=== PATIENT | male | born 1955 | race African-American/Black ===

== ENCOUNTER 2019-12-06 12:10 | Inpatient (IN) | payer MEDICARE, MEDICAID ==
[~2019-12-06] VITALS: Ht 167.6 cm; Wt 62.6 kg
[~2019-12-06 12:10] MED LIST: ASPI-1497 MT; ATOR20TA MT; HYDR25TA MT; INSU100I24 SQ; LISI40TA4 MT; METF-416 MT; NICO-645 TP; OMEP20CA14 MT
[2019-12-06] MEDS ORDERED: SODIUM CHLORIDE 0.9% 1,000 ML IV ONE (14:34)
[2019-12-06] MEDS ORDERED: ONDANSETRON HCL 4MG/2ML INJ IV STA (14:34)
[2019-12-06] MEDS ORDERED: MORPHINE SULFATE 4 MG/ML CPJ (NOT FOR IM USE) IV STA (14:34)
[2019-12-06] MEDS ORDERED: ONDANSETRON HCL 4MG/2ML INJ IM ONE (14:45)
[2019-12-06] MEDS ORDERED: LIDOCAINE HCL 1% 20ML VIAL (Pyxis) INJ ONE (15:03)
[2019-12-06] MEDS ORDERED: SODIUM BICARBONATE 4% (2.4MEQ) 5ML VIAL IV ONE (15:03)
[2019-12-06 16:43] LABS: BASOPHILS % 0.2 % (0.0-2.0); HEMATOCRIT. 42.5 % (42.0-52.0); LYMPHOCYTES % 15.8 % (20.0-50.0); MEAN CORPUSCULAR HEMOGLOBIN 30.2 pg (28.0-32.0); MEAN CORPUSCULAR VOLUME 91.9 fL (80.0-94.0); MEAN PLATELET VOLUME 8.4 fl (7.4-10.4); MONOCYTES % 4.7 % (2.0-8.0); NEUTROPHILS % 79.3 % (40.0-76.0); PLATELET 363 x1000/uL (130-400); RED BLOOD CELL COUNT 4.63 mill/uL (4.7-6.1); RED CELL DISTRIBUTION WIDTH 14.9 % (11.6-14.6)
[2019-12-06 16:48] LABS: CHLORIDE 106 mEq/L (98-107); INR 1.1
[2019-12-06 16:52] LABS: ETHANOL BLOOD < 10 mg/dL
[2019-12-06 18:17] LABS: CLARITY URINE CLEAR (CLEAR); COLOR URINE YELLOW (YELLOW); KETONES URINE NEGATIVE (NEGATIVE); LEUKOCYTE ESTERASE URINE NEGATIVE (NEGATIVE); NITRITE URINE NEGATIVE (NEGATIVE); OCCULT BLOOD URINE NEGATIVE (NEGATIVE); PROTEIN URINE 1+ (NEGATIVE); SPECIFIC GRAVITY URINE 1.023 (1.005-1.030); UROBILINOGEN URINE 0.2 E.U./dL (0.2-1.0)
[2019-12-06 18:37] LABS: *AMPHETAMINES SCREEN URINE NEGATIVE (NEGATIVE); *BARBITURATES SCREEN URINE NEGATIVE (NEGATIVE)
[2019-12-06 18:38] LABS: *BENZODIAZEPINES SCREEN URINE NEGATIVE (NEGATIVE); *COCAINE SCREEN URINE PRESUMTIVE POSITIVE (NEGATIVE); CANNABINOID URINE SCREEN PRESUMTIVE POSITIVE (NEGATIVE); METHADONE URINE SCREEN NEGATIVE (NEGATIVE); OPIATES URINE SCREEN PRESUMTIVE POSITIVE (NEGATIVE); PHENCYCLIDINE URINE SCREEN NEGATIVE (NEGATIVE)
[2019-12-06] MEDS ORDERED: ONDANSETRON HCL 4MG/2ML INJ IV ONE (18:45)
[2019-12-06] MEDS ORDERED: MORPHINE SULFATE 4 MG/ML CPJ (NOT FOR IM USE) IV ONE (18:45)
[2019-12-06] MEDS ORDERED: IPRATROPIUM/ALBUTEROL 0.5-3(2.5)MG/3ML NEB HHN PRN (20:30)
[2019-12-06] MEDS ORDERED: CLONIDINE 0.1MG TABLET PO PRN (20:30)
[2019-12-06] MEDS ORDERED: DOCUSATE SODIUM 100MG CAPSULE PO PRN (20:30)
[2019-12-06] MEDS ORDERED: DIPHENHYDRAMINE 50MG/ML VIAL IV PRN (20:30)
[2019-12-06] MEDS ORDERED: ACETAMINOPHEN 650MG SUPP PR PRN (20:30)
[2019-12-06] MEDS ORDERED: ACETAMINOPHEN 650MG/20.3ML UDC GT PRN (20:30)
[2019-12-06] MEDS ORDERED: ACETAMINOPHEN 325MG TABLET PO PRN (20:30)
[2019-12-06] MEDS ORDERED: GUAIFENESIN 200MG/10ML SUGAR FREE UDC PO PRN (20:30)
[2019-12-06] MEDS ORDERED: NA PHOS,M-B/NA PHOS,DI-BA ENEMA 118ML PR PRN (20:30)
[2019-12-06] MEDS ORDERED: MAGNESIUM/ALUMINUM HYDROXIDE/SIMETHICONE 30ML UDC PO PRN (20:30)
[2019-12-06 21:00] VITALS: BP 132/77
[2019-12-06 21:20] VITALS: BP 132/77
[2019-12-06] MEDS ORDERED: DEXTROSE 50% WATER 50ML SYRINGE IV PRN (22:30)
[2019-12-06] MEDS ORDERED: IOHEXOL-300 100 ML BOTTLE ONE (22:59)
[2019-12-06] MEDS: SODIUM CHLORIDE 0.9% INJ 3ML FLUSH IVF SCH (23:17)
[2019-12-06] MEDS: SODIUM CHLORIDE 0.45% 1,000 ML IV SCH (23:17)
[2019-12-07] VITALS: BP 131/70
[2019-12-07] MEDS: ONDANSETRON HCL 4MG/2ML INJ IV PRN ×2 (00:08→08:25)
[2019-12-07 04:00] VITALS: BP 104/73
[2019-12-07] MEDS: SODIUM CHLORIDE 0.9% INJ 3ML FLUSH IVF SCH (05:15)
[2019-12-07] MEDS: METOCLOPRAMIDE HCL 10MG/2ML VIAL IV SCH ×2 (05:54→11:20)
[2019-12-07] MEDS: BLOOD SUGAR DIAGNOSTIC STRIP TEST SCH ×2 (06:33→11:20)
[2019-12-07 07:24] LABS: BASOPHILS % 0.5 % (0.0-2.0); EOSINOPHILS % 1.2 % (0.0-5.0); HEMATOCRIT. 39.1 % (42.0-52.0); HEMOGLOBIN. 13.3 g/dL (14.0-18.0); LYMPHOCYTES % 33.3 % (20.0-50.0); MEAN CORPUSCULAR HEMOGLOBIN 30.8 pg (28.0-32.0); MEAN CORPUSCULAR VOLUME 90.8 fL (80.0-94.0); MEAN PLATELET VOLUME 8.2 fl (7.4-10.4); MONOCYTES % 7.5 % (2.0-8.0); NEUTROPHILS % 57.5 % (40.0-76.0); PLATELET 307 x1000/uL (130-400); RED BLOOD CELL COUNT 4.31 mill/uL (4.7-6.1); RED CELL DISTRIBUTION WIDTH 14.9 % (11.6-14.6)
[2019-12-07] MEDS: INSULIN LISPRO 100 UNITS/ML SUBCUT SCH ×2 (07:25→11:20)
[2019-12-07 07:34] LABS: CHLORIDE 107 mEq/L (98-107)
[2019-12-07 07:44] LABS: LDL CHOLESTEROL 50 mg/dL (5-100)
[2019-12-07 07:46] LABS: HDL CHOLESTEROL 42 mg/dL (40-59)
[2019-12-07 08:00] VITALS: BP 139/75
[2019-12-07] MEDS: MORPHINE SULFATE 2 MG/ML CPJ (NOT FOR IM USE) IV PRN ×2 (08:22→12:53)
[2019-12-07] MEDS ORDERED: LISINOPRIL 40MG TABLET PO SCH (09:00)
[2019-12-07] MEDS ORDERED: FAMOTIDINE 20MG/2ML VIAL IV SCH (09:00)
[2019-12-07] MEDS ORDERED: ENOXAPARIN 40MG/0.4ML SYR SUBCUT SCH (09:00)
[2019-12-07] MEDS: SODIUM CHLORIDE 0.45% 1,000 ML IV SCH (11:20)
[2019-12-07 12:00] VITALS: BP 104/64
[2019-12-07 13:37] VITALS: BP 139/75
[2019-12-07] MEDS ORDERED: ATORVASTATIN CALCIUM 20MG TABLET PO SCH (21:00)
== END 2019-12-07 15:15 | disposition home or self-care (01) | DRG 422 ==
LOC: ER 12:10 → 6EST 18:42 → EDBEDREQ 18:48 → EDBEDREQSVC 18:48 → ENRESERV 20:06
PROVIDERS: ADMIT Family Medicine; ATTEND Family Medicine
PROC: 02HV33Z Insertion of Infusion Device into Superior Vena Cava, Percutaneous Approach (ICD-10-PCS; principal; 2019-12-06)
PROC: B548ZZA Ultrasonography of Superior Vena Cava, Guidance (ICD-10-PCS; 2019-12-06)
DX: E86.0 Dehydration (principal); E11.9 Type 2 diabetes mellitus without complications; E78.00 Pure hypercholesterolemia, unspecified; E78.5 Hyperlipidemia, unspecified; F12.90 Cannabis use, unspecified, uncomplicated; F17.210 Nicotine dependence, cigarettes, uncomplicated; I10 Essential (primary) hypertension; Z79.82 Long term (current) use of aspirin; Z79.84 Long term (current) use of oral hypoglycemic drugs; Z79.4 Long term (current) use of insulin; Z79.899 Other long term (current) drug therapy
CPT/HCPCS: 36415; 71045; 74177; 76937; 80053; 80061; 80305; 80320; 81003; 82962; 84484; 85025; 93005; 96374; 99285; C1725; J1650; J2270; J2405; J2765; J3490; J7030; Q9967; G0480

== ENCOUNTER 2022-01-09 12:00 | Emergency (ER) | payer MEDICARE, MEDICAID ==
[~2022-01-09] VITALS: Ht 167.6 cm; Wt 59.0 kg
[~2022-01-09 12:00] MED LIST changes: +LISI40TA13 MT; -LISI40TA4 MT
[2022-01-09] MEDS ORDERED: KETOROLAC 30MG/ML VIAL IM ONE (12:45)
[2022-01-09] MEDS ORDERED: SODIUM CHLORIDE 0.9% 1,000 ML IV ONE (12:45)
[2022-01-09 13:29] VITALS: BP 150/104
[2022-01-09 13:30] LABS: BASOPHILS % 0.5 % (0.0-2.0); HEMATOCRIT. 38.2 % (42.0-52.0); HEMOGLOBIN. 12.6 g/dL (14.0-18.0); LYMPHOCYTES % 11.5 % (20.0-50.0); MEAN CORPUSCULAR HEMOGLOBIN 27.4 pg (28.0-32.0); MEAN CORPUSCULAR VOLUME 82.9 fL (80.0-94.0); MEAN PLATELET VOLUME 7.4 fl (7.4-10.4); MONOCYTES % 2.7 % (2.0-8.0); NEUTROPHILS % 85.3 % (40.0-76.0); PLATELET 407 x1000/uL (130-400); RED BLOOD CELL COUNT 4.61 mill/uL (4.7-6.1); RED CELL DISTRIBUTION WIDTH 17.9 % (11.6-14.6)
[2022-01-09 13:37] LABS: CHLORIDE 104 mEq/L (98-107)
[2022-01-09] MEDS ORDERED: INSULIN LISPRO 100 UNITS/ML SUBCUT ONE (14:00)
[2022-01-09] MEDS ORDERED: SODIUM CHLORIDE 0.9% 1,000 ML IV SCH (14:45)
[2022-01-09] MEDS ORDERED: DICYCLOMINE HCL 10MG CAPSULE PO NR (16:00)
[2022-01-09] MEDS ORDERED: MAGNESIUM/ALUMINUM HYDROXIDE/SIMETHICONE 30ML UDC PO NR (16:00)
== END 2022-01-09 17:30 | disposition left against medical advice (07) ==
LOC: ER 12:00
DX: E11.65 Type 2 diabetes mellitus with hyperglycemia (principal); I10 Essential (primary) hypertension; E87.2 Acidosis; Z79.4 Long term (current) use of insulin; Z79.84 Long term (current) use of oral hypoglycemic drugs; E78.00 Pure hypercholesterolemia, unspecified; Z79.82 Long term (current) use of aspirin; Z79.899 Other long term (current) drug therapy
CPT/HCPCS: 36415; 71045; 80053; 82010; 82962; 83605; 83690; 84484; 85025; 87040; 93005; 96372; 99285; J1815; J1885; J7030; Z7610

== ENCOUNTER 2022-03-15 09:36 | Emergency (ER) | payer MEDICARE, MEDICAID ==
[~2022-03-15] VITALS: Ht 167.6 cm; Wt 59.0 kg
[2022-03-15] MEDS ORDERED: ONDANSETRON HCL 4MG/2ML INJ IV STA (10:18)
[2022-03-15] MEDS ORDERED: MORPHINE SULFATE 4 MG/ML CPJ (NOT FOR IM USE) IV ONE (10:30)
[2022-03-15 10:53] LABS: BASOPHILS % 0.3 % (0.0-2.0); EOSINOPHILS % 0.1 % (0.0-5.0); HEMATOCRIT. 38.6 % (42.0-52.0); HEMOGLOBIN. 12.7 g/dL (14.0-18.0); LYMPHOCYTES % 15.7 % (20.0-50.0); MEAN CORPUSCULAR HEMOGLOBIN 27.2 pg (28.0-32.0); MEAN CORPUSCULAR VOLUME 82.8 fL (80.0-94.0); MEAN PLATELET VOLUME 7.2 fl (7.4-10.4); MONOCYTES % 5.7 % (2.0-8.0); NEUTROPHILS % 78.2 % (40.0-76.0); PLATELET 439 x1000/uL (130-400); RED BLOOD CELL COUNT 4.67 mill/uL (4.7-6.1); RED CELL DISTRIBUTION WIDTH 16.8 % (11.6-14.6)
[2022-03-15 10:59] LABS: CHLORIDE 100 mEq/L (98-107)
[2022-03-15 11:07] LABS: BETA HYDROXYBUTYRATE 0.6 mMol/L (0.0-0.3)
[2022-03-15] MEDS ORDERED: INSULIN REGULAR (HUMULIN R) 300UNITS/3ML VIAL SUBCUT ONE (13:15)
[2022-03-15] MEDS ORDERED: MORPHINE SULFATE 4 MG/ML CPJ (NOT FOR IM USE) IV NR (13:45)
[2022-03-15] MEDS ORDERED: ONDANSETRON HCL 4MG/2ML INJ IV NR (13:45)
[2022-03-15] MEDS ORDERED: INSULIN REGULAR (HUMULIN R) 300UNITS/3ML VIAL SUBCUT NR (14:45)
[2022-03-15] MEDS ORDERED: SODIUM CHLORIDE 0.9% 1,000 ML IV ONE (15:15)
[2022-03-15] MEDS ORDERED: OMEP20CA14 MT (16:23)
[2022-03-15] MEDS ORDERED: ONDA4TAB5 MT (16:23)
[2022-03-15 17:01] VITALS: BP 139/77
== END 2022-03-15 17:25 | disposition home or self-care (01) ==
LOC: ER 09:52
DX: R10.84 Generalized abdominal pain (principal); E11.65 Type 2 diabetes mellitus with hyperglycemia; N28.9 Disorder of kidney and ureter, unspecified; E86.0 Dehydration; E11.9 Type 2 diabetes mellitus without complications; I10 Essential (primary) hypertension; Z79.899 Other long term (current) drug therapy
CPT/HCPCS: 36415; 80053; 82010; 83690; 85025; 93005; 96372; 96374; 96375; 99285; J1815; J2270; J2405; J7030

== ENCOUNTER 2022-04-19 16:08 | Emergency (ER) | payer MEDICARE, MEDICAID ==
[~2022-04-19] VITALS: Ht 167.6 cm; Wt 58.0 kg
[~2022-04-19 16:08] MED LIST changes: +ONDA4TAB5 MT
[2022-04-19 16:25] VITALS: BP 95/62
== END 2022-04-20 00:32 | disposition left against medical advice (07) ==
LOC: ER 16:08
DX: Z53.21 Procedure and treatment not carried out due to patient leaving prior to being seen by health care provider (principal); E11.649 Type 2 diabetes mellitus with hypoglycemia without coma; R42 Dizziness and giddiness; R00.0 Tachycardia, unspecified
CPT/HCPCS: 93005